=== PATIENT | female | born 2000 | race Two or more races ===

== ENCOUNTER → 2025-02-01 10:20 | Outpatient (CLI) | payer OTHER | END | disposition home or self-care (01) | LOC: PRENATAL 10:20 | PROVIDERS: ATTEND Obstetrics & Gynecology Maternal & Fetal Medicine | DX: O36.80X0 Pregnancy with inconclusive fetal viability, not applicable or unspecified (principal); Z36.82 Encounter for antenatal screening for nuchal translucency; Z14.8 Genetic carrier of other disease; Z3A.12 12 weeks gestation of pregnancy ==

== ENCOUNTER 2025-04-12 02:15 | Outpatient (CLI) | payer OTHER ==
[2025-04-12 01:23] VITALS: BP 109/71
[2025-04-12] MEDS ORDERED: RINGERS SOLUTION,LACTATED 1,000 ML IV SCH (02:30)
[2025-04-12] MEDS ORDERED: PRENATAL TABLE1 EAC4 PO (02:51)
[2025-04-12 03:01] LABS: URINE APPEARANCE Clear; URINE BILIRRUBIN Negative (NEGATIVE); URINE BLOOD Negative; URINE COLOR Yellow; URINE GLUCOSE Negative (NEGATIVE); URINE KETONE Negative (NEGATIVE); URINE LEUKOCYTE Negative; URINE NITRATE Negative; URINE PROTEIN Negative (NEGATIVE); URINE UROBILINOGEN 1.0 E.U./dl
[2025-04-12 03:05] LABS: URINE BACTERIA 1355.9 uL (0.0-1933); URINE EPITHELIAL CELLS 11.0 uL (0.0-38.8); URINE RBC 40.1 uL (0.0-20.8); URINE WBC 19.3 uL (0.0-23.2)
[2025-04-12 03:06] LABS: BASO % 0.4 % (0.1-1.2); EOS # 0.07 (0.04-0.54); EOS % 0.5 % (0.7-7.0); LYMPH # 2.69 (1.18-3.74); LYMPH % 20.2 % (19.3-53.1); MEAN PLATELET VOLUME 9.30 fl (9.4-12.4); MONO # 0.94 (0.24-0.82); MONO % 7.1 % (4.7-12.5); NEUT # 9.18 (1.56-6.13); NEUT % 68.9 % (34.0-71.1); RED CELL DISTRIBUTION WIDTH 14.1 % (11.6-14.4)
[2025-04-12 03:15] LABS: URINE CAST 0.29 uL (0.0-1.40)
[2025-04-12 03:18] LABS: INR 0.96
[2025-04-12 06:21] VITALS: BP 102/64; O2SAT 100
[2025-04-12 11:40] VITALS: BP 102/64
== END 2025-04-12 11:55 | disposition home or self-care (01) ==
LOC: OBS/DEL 02:15
PROVIDERS: ATTEND Obstetrics & Gynecology
DX: O46.92 Antepartum hemorrhage, unspecified, second trimester (principal); O26.849 Uterine size-date discrepancy, unspecified trimester; O36.8120 Decreased fetal movements, second trimester, not applicable or unspecified; O26.859 Spotting complicating pregnancy, unspecified trimester; Z3A.22 22 weeks gestation of pregnancy

== ENCOUNTER 2025-05-24 08:13 | Outpatient (CLI) | payer OTHER ==
[~2025-05-24 08:13] MED LIST: PRENATAL TABLE1 EAC4 PO
== END 2025-05-24 08:43 | disposition home or self-care (01) ==
LOC: PRENATAL 08:13
PROVIDERS: ATTEND Obstetrics & Gynecology Maternal & Fetal Medicine
DX: O26.843 Uterine size-date discrepancy, third trimester (principal); O36.8130 Decreased fetal movements, third trimester, not applicable or unspecified; Z3A.28 28 weeks gestation of pregnancy

== ENCOUNTER → 2025-06-14 13:07 | Outpatient (CLI) | payer OTHER | END | disposition home or self-care (01) | LOC: PRENATAL 13:07 | PROVIDERS: ATTEND Obstetrics & Gynecology Maternal & Fetal Medicine | DX: O26.843 Uterine size-date discrepancy, third trimester (principal); O36.8130 Decreased fetal movements, third trimester, not applicable or unspecified; O24.419 Gestational diabetes mellitus in pregnancy, unspecified control; Z3A.31 31 weeks gestation of pregnancy ==

== ENCOUNTER 2025-06-24 03:30 | Outpatient (CLI) | payer OTHER ==
[2025-06-24 02:00] VITALS: BP 116/76
[2025-06-24] MEDS ORDERED: RINGERS SOLUTION,LACTATED 1,000 ML IV SCH (03:45)
[2025-06-24 05:10] LABS: BASO % 0.2 % (0.1-1.2); EOS # 0.04 (0.04-0.54); EOS % 0.4 % (0.7-7.0); LYMPH # 2.71 (1.18-3.74); LYMPH % 24.8 % (19.3-53.1); MEAN PLATELET VOLUME 10.10 fl (9.4-12.4); MONO # 0.95 (0.24-0.82); MONO % 8.7 % (4.7-12.5); NEUT # 7.10 (1.56-6.13); NEUT % 65.0 % (34.0-71.1); RED CELL DISTRIBUTION WIDTH 14.1 % (11.6-14.4)
[2025-06-24 05:12] LABS: URINE APPEARANCE Clear; URINE BILIRRUBIN Negative (NEGATIVE); URINE BLOOD Small; URINE COLOR Yellow; URINE KETONE Negative (NEGATIVE); URINE LEUKOCYTE Small; URINE NITRATE Negative; URINE PROTEIN Negative (NEGATIVE); URINE UROBILINOGEN 1.0 E.U./dl
[2025-06-24 05:15] LABS: URINE EPITHELIAL CELLS 48.7 uL (0.0-38.8); URINE RBC 65.0 uL (0.0-20.8); URINE WBC 47.0 uL (0.0-23.2)
[2025-06-24 05:17] LABS: URINE CAST 0.70 uL (0.0-1.40); URINE GLUCOSE 250 MG/DL (NEGATIVE)
[2025-06-24 05:32] LABS: INR 0.97
[2025-06-24 06:04] VITALS: BP 100/65; O2SAT 98
[2025-06-24 10:33] VITALS: BP 100/65
== END 2025-06-24 10:59 | disposition home or self-care (01) ==
LOC: OBS/DEL 03:30
PROVIDERS: ATTEND Obstetrics & Gynecology
DX: O46.93 Antepartum hemorrhage, unspecified, third trimester (principal); O36.8130 Decreased fetal movements, third trimester, not applicable or unspecified; O26.853 Spotting complicating pregnancy, third trimester; Z3A.32 32 weeks gestation of pregnancy

== ENCOUNTER → 2025-07-05 10:16 | Outpatient (CLI) | payer OTHER | END | disposition home or self-care (01) | LOC: PRENATAL 10:16 | PROVIDERS: ATTEND Obstetrics & Gynecology Maternal & Fetal Medicine | DX: O26.843 Uterine size-date discrepancy, third trimester (principal); O36.8130 Decreased fetal movements, third trimester, not applicable or unspecified; O99.343 Other mental disorders complicating pregnancy, third trimester; O24.419 Gestational diabetes mellitus in pregnancy, unspecified control; Z3A.34 34 weeks gestation of pregnancy ==